=== PATIENT | male | born 1985 | race Caucasian/White ===

== ENCOUNTER 2016-06-01 21:09 | Emergency (ER) | payer BC ==
[2016-06-01] MEDS ORDERED: HYDROCODONE/APAP 5/325MG TABLET PO ONE (21:27)
[2016-06-01] MEDS ORDERED: KETOROLAC 30 MG/ML VIAL IM ONE (21:28)
[2016-06-01] MEDS ORDERED: SILVER SULFADIAZINE 25 GM CREAM TOP ONE (21:28)
--- NOTE | 2016-06-01 21:34 | Emergency Department Record ---
History of Present Illness - General Chief complaint: Burn/Smoke Inhalation Stated complaint: BURN ON ARM Time Seen by Provider: 06/01/16 21:17 Source: Patient, Family Mode of Arrival: Ambulatory Limitations: No limitations - History of Present Illness Initial comments: 30 yo male presents with a burn to the left wrist and hand. He was making baby food on the stove and it spilled. No blistering. No finger swelling. MD Complaint: Burn Onset/Timin -: Hour(s) Type of Exposure: Hot liquid Smoke Inhalation: None Severity: Mild Severity scale (1-10): 7 Associated Symptoms: Denies other symptoms Treatment Prior to Arrival: Other - Related Data Previous Rx's Medication Instructions Recorded Hydrocodone/Acetaminophen [[place] 1 tab PO Q8H PRN #10 tab 06/01/16 5mg/325mg] Ibuprofen [Motrin 600Mg] 600 mg PO Q6H #25 tablet 06/01/16 Silver Sulfadiazine [Ssd] 1 apply TP TID #25 gm 06/01/16 Allergies Allergy/AdvReac Type Severity Reaction Status Date / Time amoxicillin Allergy RASH Unverified 05/22/15 10:15 Travel Screening - Travel/Exposure Within Last 30 Days Have you traveled within the last 30 days?: No - Travel/Exposure Within Last Year Have you traveled outside the [place] in the last year?: No - Additonal Travel Details Have you been exposed to anyone with a communicable illness?: No - Travel Symptoms Symptom Screening: None Review of Systems Constitutional: Denies: Chills, Fever, Malaise, Weakness Eyes: Denies: Eye discharge ENT: Denies: Congestion, Throat pain Respiratory: Denies: Cough, Hemoptysis, Wheezes Cardiovascular: Denies: Chest pain, Palpitations, Syncope Endocrine: Denies: Fatigue Gastrointestinal: Denies: Abdominal pain, Diarrhea, Nausea, Vomiting Genitourinary: Denies: Dysuria, Frequency, Hematuria Musculoskeletal: Denies: Arthralgia, Joint swelling, Myalgia, Neck pain Skin: Reports: Change in color, Other (Burn) Neurological: Denies: Headache Psychiatric: Denies: Anxiety Hematological/Lymphatic: Denies: Blood Clots, Easy bleeding, Easy bruising, Swollen glands Past Medical History - SOCIAL HISTORY Smoking Status: Never smoker Alcohol Use: None Drug Use: None - RESPIRATORY Hx Respiratory Disorders: No - CARDIOVASCULAR Hx Cardio Disorders: No - NEURO Hx Neuro Disorders: No - GI Hx GI Disorders: No - Hx Genitourinary Disorders: No - ENDOCRINE Hx Endocrine Disorders: No - MUSCULOSKELETAL Hx Musculoskeletal Disorders: No - PSYCH Hx Psych Problems: No - HEMATOLOGY/ONCOLOGY Hx Hematology/Oncology Disorders: No Family Medical History Any Significant Family History?: No Physical Exam - General General Appearance: Alert, Oriented x3, Cooperative, No acute distress Limitations: No limitations - Head Head exam: Atraumatic, Normocephalic, Normal inspection - Eye Eye exam: Normal appearance, PERRL. negative: Conjunctival injection, Scleral icterus - ENT ENT exam: Normal exam Ear exam: Normal external inspection Nasal Exam: Normal inspection Mouth exam: Normal external inspection Teeth exam: Normal inspection Throat exam: Normal inspection - Neck Neck exam: Normal inspection, Full ROM. negative: Tenderness - Respiratory Respiratory exam: Normal lung sounds bilaterally. negative: Respiratory distress - Cardiovascular Cardiovascular Exam: Regular rate, Normal rhythm, Normal heart sounds Peripheral Pulses: 2+: Radial (L) - Rectal Rectal exam: Deferred - exam: Deferred - Extremities Extremities exam: Full ROM, Normal capillary refill, Tenderness. negative: Normal inspection, Pedal edema Image of Full Body: 1 - superficial burn to the left wrist, no blisters, intact skin, mild erythema , extension to the dorsal mid hand, no visible swelling or erythema of the fingers, no sign of finger involvemnt - Back Back exam: Reports: Normal inspection, Full ROM. Denies: Muscle spasm, Rash noted, Tenderness - Neurological Neurological exam: Alert, Normal gait, Oriented X3, Reflexes normal - Psychiatric Psychiatric exam: Normal affect, Normal mood - Skin Skin exam: Erythema, Other. negative: Normal color Course Vital Signs 06/01/16 21:23 Temperature 97.7 F Pulse Rate 85 Respiratory 20 Rate Blood Pressure 135/98 Pulse Ox 96 - Reevaluation(s) Reevaluation #1: The patient has superficial witt to the wrist and hand, no finger involvement, rind was removed for future swelling, no blisters, intact skin, no partial thickness witt. Analgesia provided in the ED as well as supportive skin treatment with cool soak , silvadene and non stick dressing We discussed burn levels He will be treated supportively with analgesics and dressing changes. He is to return or follow up with his PCP in 1-2 days as needed 06/01/16 21:42 Disposition Disposition: Discharge Clinical Impression: Superficial burn of left forearm Disposition: Home, Self-Care Condition: (1) Good Instructions: Superficial Burn (ED) Additional Instructions: Keep elevated to minimize swelling Do not wear your ring until completely healed Return if you have uncontrolled pain or any new concerns Change the dressings daily for 2-3 days Follow up with your doctor this week for a recheck Prescriptions: Ibuprofen [Motrin 600Mg] 600 mg PO Q6H #25 tablet Hydrocodone/Acetaminophen [[place] 5mg/325mg] 1 tab PO Q8H PRN #10 tab PRN Reason: Pain - General Silver Sulfadiazine [Ssd] 1 apply TP TID #25 gm Forms: Patient Portal Access Time of Disposition: 21:47
== END 2016-06-01 22:12 | disposition home or self-care (01) ==
LOC: ER 21:09
DX: T23.192A Burn of first degree of multiple sites of left wrist and hand, initial encounter (principal); X10.1XXA Contact with hot food, initial encounter; Y93.G1 Activity, food preparation and clean up
CPT/HCPCS: 16020; 99283 ×2; 96372; J1885

== ENCOUNTER 2016-06-15 02:21 | Emergency (ER) | payer BC ==
--- NOTE | 2016-06-15 02:44 | Emergency Department Record ---
History of Present Illness - General Chief complaint: Cough Stated complaint: DOESNT FEEL RIGHT Time Seen by Provider: 06/15/16 02:38 Source: Patient Mode of Arrival: Ambulatory Limitations: No limitations - History of Present Illness Initial comments: 30 yo male presents to ED stating that he "woke up 15 minutes ago with a bad taste in his mouth", reports that he tried to resolve the symptoms by eating/ drinking something, but that did not work. Patient reports that developed a non -productive cough after waking up as well, denies fevers, chills, or recent illness. Patient reports that he "feels anxious and woozy", denies health problems at his baseline. MD complaint: Other Onset/Timin -: Minutes(s) Location: Throat Severity: Moderate Quality: Burning Consistency: Constant Improves with: None Worsens with: None Associated Symptoms: Cough - Related Data Previous Rx's Medication Instructions Recorded Ibuprofen [Motrin 600Mg] 600 mg PO Q6H #25 tablet 06/01/16 Silver Sulfadiazine [Ssd] 1 apply TP TID #25 gm 06/01/16 Allergies Allergy/AdvReac Type Severity Reaction Status Date / Time amoxicillin Allergy RASH Verified 06/15/16 02:26 Travel Screening - Travel/Exposure Within Last 30 Days Have you traveled within the last 30 days?: No - Travel Symptoms Symptom Screening: None Review of Systems Constitutional: Denies: Chills, Fever, Malaise, Night sweats Eyes: Denies: Eye discharge, Eye pain ENT: Reports: Throat pain. Denies: Congestion, Ear pain, Epistaxis Respiratory: Denies: Cough, Dyspnea Cardiovascular: Denies: Chest pain, Dyspnea on exertion Endocrine: Denies: Fatigue, Heat or cold intolerance Gastrointestinal: Denies: Abdominal pain, Nausea, Vomiting Musculoskeletal: Denies: Arthralgia, Back pain Skin: Denies: Bruising, Change in color Neurological: Denies: Abnormal gait, Confusion, Headache, Seizure Psychiatric: Reports: Anxiety Hematological/Lymphatic: Denies: Anemia, Blood Clots Past Medical History - SOCIAL HISTORY Smoking Status: Never smoker - RESPIRATORY Hx Respiratory Disorders: No - CARDIOVASCULAR Hx Cardio Disorders: No - NEURO Hx Neuro Disorders: No - GI Hx GI Disorders: No - Hx Genitourinary Disorders: No - ENDOCRINE Hx Endocrine Disorders: No - MUSCULOSKELETAL Hx Musculoskeletal Disorders: No - PSYCH Hx Psych Problems: No - HEMATOLOGY/ONCOLOGY Hx Hematology/Oncology Disorders: No Family Medical History Any Significant Family History?: Yes Hx Heart Disease: Grandparents Hx HTN: Father Physical Exam - General General Appearance: Alert, Oriented x3, Cooperative, Anxious Limitations: No limitations - Head Head exam: Atraumatic, Normocephalic, Normal inspection Head exam detail: negative: Abrasion, Contusion, Lazcano's sign, General tenderness, Hematoma, Laceration - Eye Eye exam: Normal appearance. negative: Conjunctival injection, Periorbital swelling, Periorbital tenderness, Scleral icterus - ENT Ear exam: negative: Auricular hematoma, Auricular trauma Nasal Exam: negative: Active bleeding, Discharge, Dried blood, Foreign body Mouth exam: negative: Drooling, Laceration, Muffled voice, Tongue elevation - Neck Neck exam: Normal inspection. negative: Meningismus, Tenderness - Respiratory Respiratory exam: Normal lung sounds bilaterally. negative: Respiratory distress, Rhonchi, Stridor, Wheezes - Cardiovascular Cardiovascular Exam: Regular rate, Normal rhythm, Normal heart sounds - GI/Abdominal GI/Abdominal exam: Soft. negative: Rebound, Rigid, Tenderness - Rectal Rectal exam: Deferred - exam: Deferred - Extremities Extremities exam: Normal inspection. negative: Pedal edema, Tenderness - Back Back exam: Denies: CVA tenderness (R), CVA tenderness (L) - Neurological Neurological exam: Alert, Normal gait, Oriented X3 - Psychiatric Psychiatric exam: Normal affect, Normal mood - Skin Skin exam: Normal color. negative: Abrasion Type of lesion: negative: abrasion Course Vital Signs 06/15/16 02:28 Temperature 97.5 F L Pulse Rate [ 89 Pulse Ox Probe] Respiratory 20 Rate Blood Pressure 128/88 [Left Arm] Pulse Ox 99 - Reevaluation(s) Reevaluation #1: 06/15/16 02:46 EKG: NSR 77 Normal axis, normal intervals No acute ST-T wave changes Reevaluation #2: 06/15/16 03:27 Patient reports improvement in his symptoms. Symptoms appear c/w reflux. Patient appears stable for discharge at this time. 06/15/16 03:29 Disposition Disposition: Discharge Clinical Impression: Acid reflux Qualifiers: Esophagitis presence: esophagitis presence not specified Qualified Code(s): K21.9 - Gastro-esophageal reflux disease without esophagitis Disposition: Home, Self-Care Condition: (2) Stable Instructions: Gastroesophageal Reflux Disease (ED) Additional Instructions: Return to ED if your symptoms worsen or if you have any concerns. Follow-up with your family doctor in 3-5 days as directed. Forms: Patient Portal Access Time of Disposition: 03:30
[2016-06-15] MEDS: MAGNESIUM HYDROXIDE/AL HYDROX 10.0001 ML, LIDOCAINE VISC 2% 200 MG, PHENOBARB/HYOSCY/AT... PO ONE ×3 (02:45)
[2016-06-15] MEDS: LORAZEPAM 0.5 MG TABLET PO ONE (02:53)
== END 2016-06-15 03:37 | disposition home or self-care (01) ==
LOC: ER 02:21
DX: K21.9 Gastro-esophageal reflux disease without esophagitis (principal); R05 Cough; R42 Dizziness and giddiness; R07.89 Other chest pain
CPT/HCPCS: 99284 ×2; 93005; 93010; J3490